=== PATIENT | male | born 1940 | race Caucasian/White ===

== ENCOUNTER 2022-10-14 11:55 | Emergency (ER) | payer MEDICARE ==
--- OUTSIDE RECORDS SUMMARY | 2022-10-14 12:23 | EXTERNAL MEDICAL SUMMARY RPT | Continuity of Care Document ---
:1940 Author Organization [facility] Address [address] [place] [address] Phone Care Team Providers Name Role Phone Unavailable Unavailable Unavailable Lamont Patient Registrar, Lucía Unavailable Ortiz Pollackp,Yarn Texture Machine Operator, Henri Unavailable Unavailable Emory Pfs, Referrals, Erika Unavailable Unavailable Allergies No information. Encounters No information. Functional Status No information. Immunizations No information. Medications date description facility 2022-08-02 00:00 metoprolol tartrate [facility] [place] [facility] 2022-08-03 00:00 metoprolol tartrate [facility] [place] [place] [place] [facility] [place] [facility] 2022-08-03 00:00 metoprolol tartrate [facility] [place] [place] [place] [facility] [place] [facility] 2022-08-02 00:00 levothyroxine [facility] [place] [facility] 2022-08-03 00:00 levothyroxine [facility] [place] [facility] 2022-08-03 00:00 levothyroxine [facility] [place] [facility] 2022-08-02 00:00 levothyroxine [facility] [place] [facility] 2022-08-03 00:00 levothyroxine [facility] [place] [facility] 2022-08-03 00:00 levothyroxine [facility] [place] [facility] 2022-08-02 00:00 metoprolol tartrate [facility] [place] [place] [facility] [place] [facility] 2022-08-03 00:00 metoprolol tartrate [facility] [place] [place] [facility] 2022-08-03 00:00 metoprolol tartrate [facility] [place] [place] [facility] [place] [facility] 2022-08-02 00:00 simvastatin [facility] [place] [facility] 2022-08-03 00:00 simvastatin [facility] 2022-08-03 00:00 simvastatin [facility] 2022-08-02 00:00 levothyroxine [facility] 2022-08-03 00:00 levothyroxine [facility] 2022-08-03 00:00 levothyroxine [facility] 2022-08-02 00:00 simvastatin [facility] 2022-08-03 00:00 simvastatin [facility] 2022-08-03 00:00 simvastatin [facility] 2022-08-02 00:00 metoprolol tartrate [facility] 2022-08-03 00:00 metoprolol tartrate [facility] 2022-08-03 00:00 metoprolol tartrate [facility] 2022-08-02 00:00 simvastatin [facility] 2022-08-03 00:00 simvastatin [facility] 2022-08-03 00:00 simvastatin [facility] 2022-08-02 00:00 simvastatin [facility] 2022-08-03 00:00 simvastatin [facility] 2022-08-03 00:00 simvastatin [facility] 2022-08-02 00:00 metoprolol tartrate [facility] 2022-08-03 00:00 metoprolol tartrate [facility] 2022-08-03 00:00 metoprolol tartrate [facility] 2022-08-02 00:00 levothyroxine [facility] 2022-08-03 00:00 levothyroxine [facility] 2022-08-03 00:00 levothyroxine [facility] Problems date description facility 2022-08-02 00:00 Benign neoplasm of skin, site [facility] 2022-08-02 00:00 Benign neoplasm of skin, site [facility] 2022-08-02 00:00 Benign neoplasm of skin, site [facility] 2022-08-02 00:00 Dysplastic nevus of skin [facility] 2022-08-02 00:00 Dysplastic nevus of skin [facility] 2022-08-02 00:00 Dysplastic nevus of skin [facility] 2022-08-02 00:00 Melanocytic nevi, unspecified [facility] 2022-08-02 00:00 Melanocytic nevi, unspecified [facility] 2022-08-02 00:00 Melanocytic nevi, unspecified [facility] Procedures date description facility 2022-08-02 00:00 Visit Code Hold [facility] 2022-08-02 00:00 Visit Code Hold [facility] 2022-08-02 00:00 Visit Code Hold [facility] Results/Labs No information. Social History No information. Vital Signs date measurement value units 2022-08-02 00:00 BMI 27.22 kg/m2 2022-08-02 00:00 BP_diastolic 69 mmHg 2022-08-02 00:00 BP_systolic 125 mmHg 2022-08-02 00:00 heart_rate 63 /min 2022-08-02 00:00 height_metric 182.88 cm 2022-08-02 00:00 height_standard 72 in 2022-08-02 00:00 respiration_rate 12 /min 2022-08-02 00:00 temperature_metric 36.67 C 2022-08-02 00:00 temperature_standard 98 F 2022-08-02 00:00 weight_metric 90.72 kg 2022-08-02 00:00 weight_standard 200 lb
[2022-10-14 12:29] LABS: BASOPHILS % (AUTO) 0.7 %; EOSINOPHILS # (AUTO) 0.1 10^3/uL (0.0-0.7); EOSINOPHILS % (AUTO) 2.3 %; HCT - HEMATOCRIT 50.5 % (42.0-52.0); HGB - HEMOGLOBIN 16.4 g/dL (14.0-18.0); LYMPHOCYTES # (AUTO) 1.3 10^3/uL (1.5-3.5); LYMPHOCYTES % (AUTO) 29.1 %; MEAN CORPUSCULAR HEMOGLOBIN 30.1 pg (27.0-31.0); MEAN CORPUSCULAR HGB CONC 32.5 g/dL (32.0-36.0); MEAN CORPUSCULAR VOLUME 92.8 fL (80.0-94.0); MEAN PLATELET VOLUME 9.9 fL (7.4-11.4); MONOCYTES # (AUTO) 0.5 10^3/uL (0.0-1.0); MONOCYTES % (AUTO) 12.5 %; NEUTROPHILS # (AUTO) 2.4 10^3/uL (1.5-6.6); NEUTROPHILS % (AUTO) 55.2 %; PLT - PLATELET COUNT 143 10^3/uL (130-450); RED BLOOD COUNT 5.44 10^6/uL (4.70-6.10); RED CELL DISTRIBUTION WIDTH 13.2 % (12.0-15.0); WHITE BLOOD COUNT 4.3 x10^3/uL (4.8-10.8)
[2022-10-14 12:43] LABS: ALBUMIN 4.2 g/dL (3.2-5.5); ALBUMIN/GLOBULIN RATIO 1.6 (1.0-2.2); CALCIUM 9.4 mg/dL (8.5-10.3); CREATININE 0.9 mg/dL (0.6-1.2); POTASSIUM 4.6 mmol/L (3.5-5.0); PT - PROTHROMBIN TIME 11.4 secs (9.9-12.6); TOTAL PROTEIN 6.9 g/dL (6.7-8.2)
[2022-10-14 12:52] LABS: PARTIAL THROMBOPLASTIN TIME 31.7 secs (24.9-33.3)
[2022-10-14 13:14] LABS: BILIRUBIN,URINE NEGATIVE (NEGATIVE); GLUCOSE, URINE (UA) NEGATIVE (NEGATIVE); KETONES,URINE (UA) NEGATIVE (NEGATIVE); LEUKOCYTE ESTERASE, URINE NEGATIVE (NEGATIVE); NITRITE,URINE NEGATIVE (NEGATIVE); OCCULT BLOOD,URINE NEGATIVE (NEGATIVE); PROTEIN,URINE NEGATIVE (NEGATIVE); UROBILINOGEN,URINE 0.2 (NORMAL) E.U./dL (NORMAL)
[2022-10-14 13:17] LABS: CLARITY,URINE CLEAR (CLEAR)
--- NOTE | 2022-10-14 13:37 | ED Physician Documentation ---
PD HPI GI BLEED - Stated complaint Stated Complaint: MALE GI - Chief complaint Chief Complaint: Abd Pain - History obtained from History obtained from: Patient - History of Present Illness Timing - onset: How many days ago (3) Timing - duration: Days (3) Timing - details: Abrupt onset Associated symptoms: BRBPR (he states he noted red blood with wiping after BM 3 days ago. History of some hemorrhoids so not alarmed. He has continued with red blood after stool1-2 times daily, and last evening had a BM that was mainly blood and a tablespoon sized clot of blood. No melena note per se.). No: Black/tarry stool, Diarrhea, Constipation, Abdominal pain Contributing factors: No: Anticoagulated Similar symptoms before: Diagnosis (hemorrhoids at times. Last colonoscopy was about 15 years ago without abnormalities. Had CT to eval for kidney stones couple years ago and comment of incidental diverticula. No prior diverticulitis.) Recently seen: Not recently seen Review of Systems Constitutional: denies: Fever, Chills GI: denies: Abdominal Pain, Nausea, Vomiting Neurologic: denies: Generalized weakness, Near syncope PD PAST MEDICAL HISTORY - Past Medical History Cardiovascular: Coronary artery disease, Atrial fibrillation GI: Pancreatitis - Past Surgical History Past Surgical History: Yes General: Cholecystectomy Cardiovascular: CABG - Present Medications Home Medications: Ambulatory Orders Medication Instructions Recorded Confirmed Aspirin 81 mg PO DAILY 06/21/13 06/21/13 Metoprolol Succinate [Toprol Xl] 25 mg PO BID 06/21/13 06/21/13 Nitroglycerin [Nitrostat] 0.4 mg SL Q5MIN PRN #30 tablet 06/21/13 Simvastatin [Zocor] 10 mg PO HS 06/21/13 06/21/13 Clopidogrel [Plavix] 75 mg PO DAILY 10/08/13 10/08/13 Warfarin [Coumadin] 5 mg PO DAILY #10 tablet 10/08/13 lisinopriL [Lisinopril] 1.25 mg PO 10/08/13 10/08/13 Hydrocortisone Supp [Anusol-Hc] 25 mg RC DAILY 6 Days #6 supp 10/14/22 - Allergies Allergies/Adverse Reactions: Allergies Allergy/AdvReac Type Severity Reaction Status Date / Time No Known Drug Allergies Allergy Verified 10/14/22 12:03 - Social History Does the pt smoke?: No Smoking Status: Never smoker Does the pt drink ETOH?: No Does the pt have substance abuse?: No PD ED PE NORMAL - Vitals Vital signs reviewed: Yes - General General: Alert and oriented X 3, No acute distress, Well developed/nourished - Respiratory Respiratory: Clear bilaterally - Abdomen Abdomen: Normal bowel sounds, Soft, Non tender, Non distended - Male Male : Deferred - Rectal Rectal: Other (visual/digital/ and anoscope: external is normal. There is an inflammed internal hemorrhoid, purple and tender with some blod/mucous around it but it is not hard. does not seem thrombosed per se. Above that appears brown stool but some trace of red blood in vault. Stool did not appear melenotic. ) Results - Vitals Vitals: Vital Signs - 24 hr 10/14/22 10/14/22 12:00 14:03 Temperature 36.4 C L Heart Rate 60 58 L Respiratory 16 18 Rate Blood Pressure 129/76 125/98 H O2 Saturation 98 99 Oxygen O2 Source Room air - Labs Labs: Laboratory Tests 10/14/22 10/14/22 10/14/22 12:21 12:21 12:21 WBC 4.3 L RBC 5.44 Hgb 16.4 Hct 50.5 MCV 92.8 MCH 30.1 MCHC 32.5 RDW 13.2 Plt Count 143 MPV 9.9 Neut # (Auto) 2.4 Lymph # (Auto) 1.3 L Brooks # (Auto) 0.5 Eos # (Auto) 0.1 Baso # (Auto) 0.0 Absolute Nucleated RBC 0.00 Nucleated RBC % 0.0 PT 11.4 INR 1.0 APTT 31.7 Sodium 139 Potassium 4.6 Chloride 101 Carbon Dioxide 31 Anion Gap 7.0 BUN 15 Creatinine 0.9 Estimated GFR (MDRD) 80 L Glucose 109 H Calcium 9.4 Total Bilirubin 1.0 AST 28 ALT 27 Alkaline Phosphatase 45 Total Protein 6.9 Albumin 4.2 Globulin 2.7 Albumin/Globulin Ratio 1.6 Lipase 45 Urine Color Urine Clarity Urine pH Ur Specific Amory Urine Protein Urine Glucose (UA) Urine Ketones Urine Occult Blood Urine Nitrite Urine Bilirubin Urine Urobilinogen Ur Leukocyte Esterase Ur Microscopic Review Urine Culture Comments Blood Type Blood Type Recheck Antibody Screen 10/14/22 10/14/22 10/14/22 12:21 12:39 13:05 WBC RBC Hgb Hct MCV MCH MCHC RDW Plt Count MPV Neut # (Auto) Lymph # (Auto) Brooks # (Auto) Eos # (Auto) Baso # (Auto) Absolute Nucleated RBC Nucleated RBC % PT INR APTT Sodium Potassium Chloride Carbon Dioxide Anion Gap BUN Creatinine Estimated GFR (MDRD) Glucose Calcium Total Bilirubin AST ALT Alkaline Phosphatase Total Protein Albumin Globulin Albumin/Globulin Ratio Lipase Urine Color YELLOW Urine Clarity CLEAR Urine pH 6.0 Ur Specific Amory 1.025 Urine Protein NEGATIVE Urine Glucose (UA) NEGATIVE Urine Ketones NEGATIVE Urine Occult Blood NEGATIVE Urine Nitrite NEGATIVE Urine Bilirubin NEGATIVE Urine Urobilinogen 0.2 (NORMAL) Ur Leukocyte Esterase NEGATIVE Ur Microscopic Review NOT INDICATED Urine Culture Comments NOT INDICATED Blood Type O POSITIVE Blood Type Recheck O POSITIVE Antibody Screen NEGATIVE PD Medical Decision Making - ED course Complexity details: considered differential, d/w patient Reviewed Lab Results: Reported blood in stool with bowel movements for the last 3 days. His vital signs are good and his blood count obtained to ensure no anemia was in the normal range with a hemoglobin of 16. He is not on blood thinners. Rectal exam with anoscope showed an internal hemorrhoid with some blood and mucus around it. He does not have any abdominal pain. I feel he is likely having hemorrhoid pain and bleeding. Low suspicion for diverticulitis. He certainly could be having bleeding from a little bit higher up in near future colonoscopy would be appropriate as he is not had one for 15 years. However at this point I do not see any value in getting a CT scan as this would be low yield. He seems stable at this point and we can treat it with rectal suppositories for hemorrhoids. Departure - Departure Disposition: 01 Home, Self Care Clinical Impression: Acute lower GI bleeding, Internal hemorrhoid, bleeding Condition: Stable Instructions: ED Hemorrhoids Prescriptions: Hydrocortisone Supp [Anusol-Hc] 25 mg RC DAILY 6 Days #6 supp Comments: You do have an inflamed internal hemorrhoid with a little bit of blood around it suggesting this is the source of the red blood. It is potentially possible he could have a source of bleeding prior as well but at this point we would treat with hemorrhoid suppositories daily for the next 5 or 6 days. Stay well- hydrated. Consider a mild stool softener. Recheck if not resolved over the next 2 to 3 days and return to the ER if significant increase in the amount of bleeding or you develop abdominal pain, fevers, rectal tenderness or other concerns. I sent your prescription to [facility] in [place]. Discharge Date/Time: 10/14/22 14:40
[2022-10-14 14:18] VITALS: BP 125/98
== END 2022-10-14 14:40 | disposition home or self-care (01) ==
LOC: ED 11:55
DX: K92.2 Gastrointestinal hemorrhage, unspecified (principal); K64.8 Other hemorrhoids; I48.91 Unspecified atrial fibrillation; I25.10 Atherosclerotic heart disease of native coronary artery without angina pectoris; Z79.01 Long term (current) use of anticoagulants
CPT/HCPCS: 36415; 80053; 81001; 81003; 83690; 85025; 85610; 85730; 86850; 86900; 86901; 87086; 99283; 99284

== ENCOUNTER 2023-03-26 20:21 | Emergency (ER) | payer MEDICARE ==
[2023-03-26] MEDS ORDERED: SODIUM CHLORIDE 0.9% 1,000 ML IV STA (20:57)
[2023-03-26] MEDS ORDERED: diphenhydrAMINE INJ 50 MG/ML VIAL IVP STA (20:57)
[2023-03-26] MEDS ORDERED: METOCLOPRAMIDE 10 MG/2 ML VIAL IVP STA (20:57)
--- NOTE | 2023-03-26 21:12 | ED Physician Documentation ---
PD HPI HEADACHE - Stated complaint Stated Complaint: HEADACHE - Chief complaint Chief Complaint: Neuro - History obtained from History obtained from: Patient - Additional information Additional information: Patient is an 82-year-old male presenting for evaluation of a frontal headache that is been present for the past 8 hours. Patient describes it as a pressure sensation. Patient reports that it started off gradually and has been progressively getting worse through the afternoon. He has associated nausea.He denies any head trauma or injury. Does not take a blood thinner. Patient states he was out running errands with his when the pain started.He denies any blurriness to his vision, focal weakness. Nothing makes his symptoms better or worse. He feels some pressure in the sinuses.He has tried ibuprofen and acetaminophen without any improvement.He has had some headaches in the past but not similar to this.Denies any recent travel. No chest pain, cough, difficulty breathing, abdominal pain, numbness or tingling. Review of Systems Constitutional: denies: Fever Cardiac: denies: Chest pain / pressure Respiratory: denies: Dyspnea GI: denies: Abdominal Pain, Vomiting Musculoskeletal: denies: Neck pain, Back pain Neurologic: denies: Headache PD PAST MEDICAL HISTORY - Past Medical History Past Medical History: Yes Cardiovascular: Hypertension, Coronary artery disease, Atrial fibrillation Endocrine/Autoimmune: HyPOthyroidism GI: Pancreatitis - Past Surgical History Past Surgical History: Yes General: Cholecystectomy Cardiovascular: CABG - Present Medications Home Medications: Ambulatory Orders Medication Instructions Recorded Confirmed Aspirin 81 mg PO DAILY 06/21/13 03/26/23 Metoprolol Succinate [Toprol Xl] 25 mg PO BID 06/21/13 03/26/23 Simvastatin [Zocor] 10 mg PO HS 06/21/13 03/26/23 Ascorbic Acid [Vitamin C] 500 mg PO BID 03/26/23 03/26/23 Cholecalciferol [Vitamin D3] 1 cap PO DAILY 03/26/23 03/26/23 Levothyroxine Sodium 1 tab PO DAILY 03/26/23 03/26/23 Zinc Acetate [Galzin] 25 mg PO DAILY 03/26/23 03/26/23 glucosamine HCL [Glucosamine HCl] 1 tab PO DAILY 03/26/23 03/26/23 - Allergies Allergies/Adverse Reactions: Allergies Allergy/AdvReac Type Severity Reaction Status Date / Time No Known Drug Allergies Allergy Verified 03/26/23 20:37 - Social History Does the pt smoke?: No Smoking Status: Never smoker Does the pt drink ETOH?: No Does the pt have substance abuse?: No - Immunizations Immunizations are current?: No - POLST Patient has POLST: No PD ED PE NORMAL - General General: Alert and oriented X 3, No acute distress, Well developed/nourished - HEENT HEENT: Atraumatic, PERRL, EOMI, Other (No tenderness over bilateral temporal arteries) - Neck Neck: Supple, no meningeal sign - Cardiac Cardiac: RRR, No murmur - Respiratory Respiratory: No respiratory distress, Clear bilaterally - Abdomen Abdomen: Soft, Non tender - Derm Derm: Warm and dry - Extremities Extremities: No edema - Neuro Neuro: Alert and oriented X 3, manager gaming 2-12 intact, No motor deficit, No sensory deficit, Normal speech, Other (Normal gait) Results - Vitals Vitals: Vital Signs - 24 hr 03/26/23 03/26/23 03/26/23 20:32 21:25 21:26 Temperature 36.0 C L 36.6 C Heart Rate 71 71 79 Respiratory 18 16 18 Rate Blood Pressure 169/101 H 158/79 H 157/81 H O2 Saturation 100 100 100 03/26/23 03/26/23 03/26/23 21:44 22:30 23:30 Temperature 35.8 C L 36.8 C Heart Rate 74 73 76 Respiratory 16 17 20 Rate Blood Pressure 157/82 H 132/74 H 136/72 H O2 Saturation 100 100 100 Oxygen O2 Source Room air PD Medical Decision Making - ED course Complexity details: reviewed results, re-evaluated patient, d/w patient, d/w family ED course: Patient is an 82-year-old male presenting for evaluation of a headache. No head injury or trauma. He is not on a blood thinner. His neuro exam is normal. He is otherwise well-appearing with no signs of meningismus or nuchal rigidity.Given his age a CT head was obtained which I reviewed and is negative for signs of an intracranial hemorrhage. Patient was given medications for a migraine including Reglan, Benadryl, IV fluids and Toradol with significant improvement in his symptoms. Patient does report that he has not had much to drink today including this morning with only having had a cup of coffee before starting to run errands throughout the day.Question whether dehydration is partially a factor in his symptoms today. As patient does not have any symptoms Exam findings to suggest subarachnoid hemorrhage Or meningitis I do not think an LP is necessary at this time. Patient is counseled on continued supportive care, close follow-up with PCP as well as concerning symptoms to return for. Departure - Departure Disposition: 01 Home, Self Care Clinical Impression: Headache Condition: Stable Instructions: ED Cephalgia Unspecified Comments: You were evaluated for Headache. Your CT scan of the brain does not show any abnormalities At this time. You are given medicine to help with the migraine headache including IV fluids. Please continue with rest and staying hydrated. If anytime your symptoms are worsening or you develop any new symptoms such as weakness, fevers or have any new concerns please return to the emergency department. Discharge Date/Time: 03/26/23 23:34
--- NOTE | 2023-03-26 22:46 | CT Report ---
PROCEDURE: HEAD WO INDICATIONS: frontal headache TECHNIQUE: Noncontrast 4.5 mm thick angled axial sections acquired from the foramen magnum to the vertex. For r adiation dose reduction, the following was used: automated exposure control, adjustment of mA and/or kV according to patient size. COMPARISON: None. FINDINGS: Image quality: Excellent. CSF spaces: Basal cisterns are patent. No extra-axial fluid collections. Ventricles are normal in size and shape. Brain: No midline shift. No intracranial masses or hemorrhage. Hutchinson-white matter interface is norm al. Skull and face: Calvarium and visualized facial bones are intact, without suspicious lesions. Sinuses: Visualized sinuses and mastoids are clear. IMPRESSION: No trauma found, source of headache is not identified. Reviewed by: Rock Flynn MD on 03/26/2023 10:45 PM PDT Approved by: Rock Flynn MD on 03/26/2023 10:45 PM PDT Station ID: [id number]
[2023-03-26] MEDS ORDERED: KETOROLAC 15 MG/ML VIAL IVP STA (23:02)
[2023-03-26 23:34] VITALS: BP 136/72
== END 2023-03-26 23:34 | disposition home or self-care (01) ==
LOC: ED 20:21
DX: R51.9 Headache, unspecified (principal)
CPT/HCPCS: 36415; 70450; 96374; 96375; 99283; 99284; J1200; J2765